=== PATIENT | male | born 1960 | race Caucasian/White ===

== ENCOUNTER 2016-12-20 09:29 | Outpatient (CLI) | payer MEDICAID ==
[~2016-12-20] VITALS: Ht 176.5 cm; Wt 91.8 kg
[2016-12-20 09:05] VITALS: BP 133/83; PULSE 60; RESP 16; Ht 176.5 cm; Wt 91.8 kg
--- NOTE | 2016-12-20 15:31 | CONS ---
DATE OF CONSULTATION: 12/20/2016 [facility] INITIAL OUTPATIENT CONSULTATION NOTE PLACE OF SERVICE: [facility]. Dear Dr. Curry: Thank you very much for allowing us to participate in the care of this very pleasant gentleman and I am certain his wonderful family. HISTORY OF PRESENT ILLNESS: The patient is a very pleasant 56-year-old gentleman with a few comorbidities including BMI of 29.5, presenting for evaluation for right inguinal pain and question of right inguinal hernia. Patient is fairly healthy without significant past medical history. He had a hemorrhoid surgical procedure in 2011. He recently had a bout of lower back pain that necessitated evaluation through the emergency department and axial images that did not show any obvious anatomic abnormality of the spine. He has been experiencing a 2-month history of discomfort in the right groin region. 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 This is a new pain for him and no other previous history of similar symptoms or interventions in this area. He also does not report any changes to his bowel or bladder habits including no issues with diarrhea, constipation, blood in the stool or urine and changes in appetite. He has not reported significant weight change, and generally reports 2-4-year history of gradual increase in weight gain. No issues with his testicles and no prior genitourinary issues other than the frequency of having to urinate in the middle of the night (at times 2 or 3 times). COMORBIDITIES: 1. BMI 29.5. 2. Hemorrhoid surgery in 2011. 3. Family history of open heart surgery in the mother and Alzheimer's disease. ALLERGIES: NO KNOWN DRUG ALLERGIES. HOME MEDICATIONS: Carefully reviewed and documented in the electronic health record systems. SOCIAL HISTORY: The patient is a salesman. He is and has 2 children. He does not report any significant abuse of tobacco products, alcohol products and no report of intravenous drug use. FAMILY HISTORY: Mother with Alzheimer disease and open heart surgery. No other mention of major medical, surgical or oncologic problems in the family. REVIEW OF SYSTEMS: Other than the above-mentioned, there were no other pertinent positives or pertinent negatives in a complete 14-point review of systems. PHYSICAL EXAMINATION: GENERAL: The patient appears to be a very pleasant gentleman of [place] descent, appearing stated age, sitting in a chair comfortably and in no acute distress. BMI is 29.5. He is afebrile. VITAL SIGNS: Stable with the exception of slightly high blood pressure of 133/ 83. HEENT: His head is normocephalic and atraumatic. His extraocular muscles and hearing are grossly intact bilaterally and symmetrically. His sclerae are nonicteric. His oral cavity is clear, and his oral mucosa appeared to be pink and moist. He has fair dentition with some cavities that have been dealt with. No significant halitosis. NECK: Supple. There is no lymphadenopathy or JVD. His mucosa otherwise in the mouth appear to be pink and moist. CHEST: Rises symmetrically with each breath, and he is breathing comfortably. There are no audible wheezes, rales or rhonchi on the gross exam. His pulses are palpable in the carotids bilaterally and symmetrically, as well as in the right wrist. EXTREMITIES: He has varicose veins along his lower extremities, more on the left than on the right, but no significant swelling around the ankles bilaterally and symmetrically. ABDOMEN: Shows an abdomen that is soft, slightly protuberant but nondistended and certainly nontender to palpation. There is no evidence of organomegaly, caput medusae, engorged subcutaneous veins, or ascites. His groin exam and genitalia demonstrate normal appearing genitalia with both testicles in the scrotum. There is no evidence of hernia defect in either the right or the left internal rings with examination of the rings directly with or without Valsalva maneuver. There is no evidence of any hernia and there is no significant tenderness during this portion of the examination. SKIN: Otherwise, appears to be pink and feels warm to touch. NEUROLOGIC: He is awake, alert, and follows commands appropriately. LABORATORY DATA: Dated 10/08/2016 show normal CBC, with platelet count 205, creatinine is 0.84. Albumin 4.4. Liver function and injury parameters normal. Urinalysis normal cholesterol and LDL cholesterol are high. HIV screen is negative, chlamydia and Neisseria are negative. TSH is normal. RPR is nonreactive. IMAGING: Patient had an ultrasound on 11/15/2016 of the abdomen that demonstrated no cholelithiasis or sonographic evidence of acute cholecystitis. Common bile duct was not dilated. There was no hydronephrosis. Hepatosteatosis versus other infiltrative hepatic disease was mentioned but not further characterized. At the site of the symptomatology in the right lower abdomen and the abdominal wall, there was no space occupying mass or sonographic evidence of bowel containing hernia noted. IMPRESSION AND PLAN: A very pleasant and otherwise fairly healthy gentleman with comorbidity of BMI 29.5, presenting with abdominal discomfort near the right groin region, but no obvious anatomic evidence of hernia. I do not suspect an issue with right groin hernia at this time. The etiology of the pain may be multifactorial and may be related to lifestyles and excess weight along with musculoskeletal related etiology. Other candidates to explain the symptoms are gastrointestinal issues, but the patient has had a colonoscopy approximately 6 years ago and was reportedly normal. Overall, my index of suspicion that there is a surgical issue is very low and I tried to explain all this to the patient in detail. We spent approximately 15 minutes in overall counseling time regarding permanent changes in lifestyle to try and bring the patient's BMI to between 24 and 18. I did review the issues a number of times with the patient and it was my understanding that the patient understood the main points of my discussions. I answered all the patient's questions to the best of my ability. Note that there was no family present with the patient during his visit. The patient appeared to understand and agreed with the plans. With above assessment, I recommended the followin. Permanent lifestyle changes to bring BMI to between 18-24. This should include a healthier approach to food as well as persistent exercise with a 6- month to a year plan to achieve this goal with the help of family as well as primary care physician. 3. Two further medical evaluation of the pain. 4. Possible consideration for gastroenterology consultation, although I believe that there is little evidence for need for endoscopy. 5. Symptomatic followup and if the patient does not improve or worsens, we can certainly change our tactic and obtain an abdominal and pelvic CT scan with IV and oral contrast. 6. Follow up with my office as needed. Thank you again for allowing us to participate in the care of this very pleasant gentleman and I am certain his wonderful family. If there are any questions, please feel free to contact me at [phone]. NATURE OF PRESENTING PROBLEM: Low risk. COMPLEXITY OF DECISION MAKING: Straightforward complexity. Dictated By: TASHA CLARKE/GIOVANNI Conf#: [id number] DID#: [id number] CC: NATALYA CURRY MD;*EndCC* MTDD
== END 2016-12-20 17:00 | disposition home or self-care (01) ==
LOC: HPC 09:29
PROVIDERS: ATTEND Transplant Surgery
DX: K40.90 Unilateral inguinal hernia, without obstruction or gangrene, not specified as recurrent (principal)
CPT/HCPCS: G0463